=== PATIENT | male | born 1995 | race Hispanic/Latino ===

== ENCOUNTER 2020-12-12 10:59 | Emergency (ER) | payer OTHER ==
[~2020-12-12] VITALS: Ht 157.5 cm; Wt 76.2 kg
[2020-12-12] MEDS ORDERED: DESMOPRESSIN ACETATE NASAL SCH (11:30)
[2020-12-12 11:52] LABS: HEMATOCRIT 45.2 % (42-54); MEAN CORPUSCULAR HEMOGLOBIN 29.4 pg (27.0-33.0); MEAN CORPUSCULAR HGB CONC 34.3 g/dL (32.0-36.0); MEAN CORPUSCULAR VOLUME 85.6 fL (79-99); RED BLOOD CELL COUNT(AUTO) 5.28 MIL/uL (4.50-6.20); RED CELL DISTRIBUTION WIDTH 12.3 % (11.0-15.5); WHITE BLOOD COUNT (AUTO) 15.2 K/uL (4.8-10.8)
[2020-12-12 11:57] LABS: APPEARANCE,URINE Clear (CLEAR); BILIRUBIN,URINE Negative (NEGATIVE); COLOR,URINE Yellow (YELLOW); GLUCOSE, URINE (UA) Negative (NEGATIVE); KETONES,URINE Trace mg/dL (NEGATIVE); LEUKOCYTE ESTERASE ,URINE Negative (NEGATIVE); NITRATE,URINE Negative (NEGATIVE); OCCULT BLOOD,URINE Negative (NEGATIVE); PH,URINE 8.5 (5.0-8.0); PROTEIN,URINE Negative (NEGATIVE)
[2020-12-12 12:00] LABS: CREATININE 0.8 mg/dL (0.5-1.5); POTASSIUM 4.1 mmol/L (3.5-5.1)
[2020-12-12 12:11] LABS: BACTERIA,URINE None Seen /HPF (None Seen); RBC,URINE 0-1 /HPF (0-1); SQUAMOUS EPITHELIAL CELL,UR 0-2 /HPF (0-2); WBC,URINE 0-1 /HPF (0-1)
[2020-12-12] MEDS ORDERED: KETOROLAC 60 MG VIAL (30MG/ML) IM ONE (13:30)
[2020-12-12 13:31] VITALS: BP 108/65
[2020-12-12] MEDS ORDERED: DESM10SP2 NS (13:48)
== END 2020-12-12 14:06 | disposition home or self-care (01) ==
LOC: EEVIPCON 10:59 → EDH 10:59
DX: E23.2 Diabetes insipidus (principal); R51.9 Headache, unspecified; E03.9 Hypothyroidism, unspecified; Z98.890 Other specified postprocedural states
CPT/HCPCS: 36415; 80048; 81001; 85027; 93005; 96372; 99284; J1885